=== PATIENT | male | born 1965 | race Caucasian/White ===

== ENCOUNTER 2017-05-15 00:24 | Emergency (ER) | payer MEDICAID ==
[~2017-05-15] VITALS: Ht 170.2 cm; Wt 76.5 kg
[~2017-05-15 00:24] MED LIST: NAPR-260 PO; dayquil
[2017-05-15 00:29] VITALS: Ht 170.2 cm; Wt 76.5 kg
[2017-05-15] MEDS ORDERED: SOD CHLORIDE 0.9% 1,000 ML IV STA (00:37)
[2017-05-15] MEDS ORDERED: ONDANSETRON 4 MG INJ IV STA (00:37)
[2017-05-15] MEDS ORDERED: morphine 4 MG/ML VIAL IV STA (00:37)
[2017-05-15 00:56] VITALS: TEMP 98.7
[2017-05-15 01:05] LABS: ADD SCAN DIFF NO
[2017-05-15 01:06] LABS: BASOPHILS % 0.3 % (0.0-2.0); EOSINOPHILS % 0.3 % (0.0-7.0); HEMATOCRIT 44.4 % (42.0-52.0); HEMOGLOBIN 15.2 g/dl (14.0-18.0); LYMPHOCYTES # 1.8 10^3/ul (0.8-2.9); MEAN CORPUSCULAR HEMOGLOBIN 31.1 pg (29.0-33.0); MEAN CORPUSCULAR HGB CONC 34.2 g/dl (32.0-37.0); MEAN CORPUSCULAR VOLUME 90.8 fl (82.0-101.0); MEAN PLATELET VOLUME 10.3 fl (7.4-10.4); MONOCYTE # 0.8 10^3/ul (0.3-0.9); MONOCYTES % 9.5 % (0.0-11.0); NEUTROPHIL # 5.9 10^3/ul (1.6-7.5); NEUTROPHILS % 68.7 % (39.0-77.0); PLATELET COUNT 263 10^3/UL (140-415); RED BLOOD COUNT 4.89 10^6/ul (4.70-6.10); RED CELL DISTRIBUTION WIDTH 13.7 % (11.5-14.5); WHITE BLOOD COUNT 8.6 10^3/ul (4.8-10.8)
[2017-05-15 01:21] LABS: ADD UMIC YES; UR ASCORBIC ACID NEGATIVE (NEGATIVE); UR BILIRUBIN (Dip) NEGATIVE (NEGATIVE); UR BLOOD (Dip) 1+ mg/dL (NEGATIVE); UR CLARITY CLEAR (CLEAR); UR COLOR YELLOW (YELLOW); UR GLUCOSE (Dip) NEGATIVE (NEGATIVE); UR KETONES (Dip) NEGATIVE (NEGATIVE); UR LEUKOCYTE ESTERASE (Dip) NEGATIVE Leu/ul (NEGATIVE); UR NITRITE (Dip) NEGATIVE (NEGATIVE); UR RBC 2 /HPF (0-5); UR TOTAL PROTEIN (Dip) NEGATIVE (NEGATIVE); UR UROBILINOGEN (Dip) NEGATIVE (NEGATIVE)
[2017-05-15 01:24] LABS: ALBUMIN 4.5 g/dl (3.3-4.9); ALBUMIN/GLOBULIN RATIO 1.36; BILIRUBIN,INDIRECT 0.3 mg/dl (0-1.1); BILIRUBIN,TOTAL 0.3 mg/dl (0.2-1.3); CALCIUM 9.2 mg/dl (8.4-10.2); CREATININE 0.66 mg/dl (0.61-1.24); TOTAL PROTEIN 7.8 g/dl (6.1-8.1)
--- NOTE | 2017-05-15 02:29 | RADRPT ---
PROCEDURE: CT abdomen and pelvis without intravenous contrast. CLINICAL INDICATION: Pain. TECHNIQUE: CT of the abdomen/pelvis was performed utilizing axial images with reconstructions in s agittal and coronal planes. The administered radiation dose is CTDI 11.8 mGy, DLP 703 mGy-cm. COMPARISON: No pertinent prior examinations were submitted for comparison. FINDINGS: Visualized Chest: The visualized lung bases are clear. Abdomen: The liver, spleen, pancreas, and adrenal glands are unremarkable. Prior cholecystectomy is noted. The kidneys are without hydronephrosis. No definite urinary calculi are seen. There is no evidence of bowel obstruction. The appendix is normal. No intra-abdominal free air is seen. There is some thickening of the distal the terminal ileum with some mild surrounding mesenter ic inflammatory changes. There is no evidence of intra-abdominal adenopathy or free fluid. Pelvis: There is no evidence of pelvic adenopathy or free fluid. The prostate and bladder are unremarkable. Osseous structures: Unremarkable. IMPRESSION: Thickening of the distal terminal ileum compatible with enteritis. RPTAT: HIKT .Branden Roca MD, MD Date Time Electronically viewed and signed by .Branden Roca MD, on 05/15/2017 02:28 .T/
--- NOTE | 2017-05-15 04:53 | ERD ---
ER Documentation Chief Complaint Date/Time DATE: 05/15/17 TIME: 04:52 Chief Complaint ap , n/v/d for a week, pt feels dizzy and weak HPI 51-year-old male comes in with abdominal pain. He complains of downsloping diarrhea for 1 week. Episodes of watery stool per day with no bleeding. 2 episodes of vomiting per day nonbilious and nonbloody. No fevers no chills. No sick contacts. ROS All systems reviewed and are negative except as per history of present illness. 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 Reported Medications [dayquil] No Conflict Check 12/25/12 [None] No Conflict Check 08/08/12 Allergies Allergies: Coded Allergies: No Known Drug Allergies (Verified Allergy, Mild, 07/23/16) PMhx/Soc History of Surgery: Yes (Cholecystectomy) Anesthesia Reaction: No Hx Neurological Disorder: No Hx Respiratory Disorders: No Hx Cardiac Disorders: No Hx Psychiatric Problems: No Hx Miscellaneous Medical Probl: No Hx Alcohol Use: No Hx Substance Use: No Hx Tobacco Use: No Smoking Status: Unknown if ever smoked Physical Exam Vitals Vital Signs Date Time Temp Pulse Resp B/P Pulse Ox O2 Delivery O2 Flow Rate FiO2 05/15/17 02:03 68 18 113/68 98 Room Air 05/15/17 00:56 98.7 63 17 116/62 97 Room Air 05/15/17 00:29 98.7 74 18 125/61 98 Physical Exam Const: [] Head: Atraumatic Eyes: Normal Conjunctiva ENT: Normal External Ears, Nose and Mouth. Neck: Full range of motion..~ No meningismus. Resp: Clear to auscultation bilaterally Cardio: Regular rate and rhythm, no murmurs Abd: Soft, non tender, non distended. Normal bowel sounds Skin: No petechiae or rashes Back: No midline or flank tenderness Ext: No cyanosis, or edema Neur: Awake and alert Psych: Normal Mood and Affect Result Diagram: 05/15/17 0044 05/15/17 0044 Results 24 hrs Laboratory Tests Test 05/15/17 00:44 7/17/17 00:49 White Blood Count 8.610^3/ul Red Blood Count 4.8910^6/ul Hemoglobin 15.2g/dl Hematocrit 44.4% Mean Corpuscular Volume 90.8fl Mean Corpuscular Hemoglobin 31.1pg Mean Corpuscular Hemoglobin Concent 34.2g/dl Red Cell Distribution Width 13.7% Platelet Count 57240^3/UL Mean Platelet Volume 10.3fl Neutrophils % 68.7% Lymphocytes % 21.0% Monocytes % 9.5% Eosinophils % 0.3% Basophils % 0.3% Nucleated Red Blood Cells % 0.0/100WBC Neutrophils # 5.910^3/ul Lymphocytes # 1.810^3/ul Monocytes # 0.810^3/ul Eosinophils # 0.010^3/ul Basophils # 0.010^3/ul Nucleated Red Blood Cells # 0.010^3/ul Sodium Level 141mmol/L Potassium Level 4.0mmol/L Chloride Level 101mmol/L Carbon Dioxide Level 25mmol/L Anion Gap 19 Blood Urea Nitrogen 18mg/dl Creatinine 0.66mg/dl Glucose Level 102mg/dl Calcium Level 9.2mg/dl Total Bilirubin 0.3mg/dl Direct Bilirubin 0.00mg/dl Indirect Bilirubin 0.3mg/dl Aspartate Amino Transf (AST/SGOT) 49IU/L Alanine Aminotransferase (ALT/SGPT) 47IU/L Alkaline Phosphatase 110IU/L Total Protein 7.8g/dl Albumin 4.5g/dl Globulin 3.30g/dl Albumin/Globulin Ratio 1.36 Lipase 87U/L Urine Color YELLOW Urine Clarity CLEAR Urine pH 5.0 Urine Specific [place] 1.030 Urine Ketones NEGATIVEmg/dL Urine Nitrite NEGATIVEmg/dL Urine Bilirubin NEGATIVEmg/dL Urine Urobilinogen NEGATIVEmg/dL Urine Leukocyte Esterase NEGATIVELeu/ul Urine Microscopic RBC 2/HPF Urine Microscopic WBC 1/HPF Urine Hemoglobin 1+mg/dL Urine Glucose NEGATIVEmg/dL Urine Total Protein NEGATIVEmg/dl Current Medications Medications (Trade) Dose Ordered Sig/Gerry Route PRN Reason Start Time Stop Time Status Last Admin Dose Admin Sodium Chloride (NS) 1,000 ml @ 1,000 mls/hr Q1H STAT IV 05/15/17 00:37 05/15/17 01:36 DC 05/15/17 00:46 Morphine Sulfate (morphine) 4 mg ONCE STAT IV 05/15/17 00:37 05/15/17 00:39 DC 05/15/17 00:46 Ondansetron HCl (Zofran Inj) 4 mg ONCE STAT IV 05/15/17 00:37 05/15/17 00:39 DC 05/15/17 00:46 Procedures/MDM Medical decision-m[age]-year-old male with ileitis. At this point clinically stable for outpatient management. Patient will be discharged home. Departure Diagnosis: Primary Impression: Abdominal pain Abdominal location: generalized Qualified Code: R10.84 - Generalized abdominal pain Condition: Stable NATALIA BROOKS May 15, 2017 04:53
[2017-05-15] MEDS ORDERED: METR500T PO (04:54)
[2017-05-15] MEDS ORDERED: ONDA4TAB14 PO (04:54)
[2017-05-15] MEDS ORDERED: CIPR500T4 PO (04:54)
[2017-05-15 05:06] VITALS: BP 116/58; PULSE 66; RESP 18
== END 2017-05-15 05:05 | disposition home or self-care (01) ==
LOC: E/R 00:24
DX: R10.84 Generalized abdominal pain (principal); R11.2 Nausea with vomiting, unspecified
CPT/HCPCS: 74176; 80053; 81001; 83690; 85025; J2270; J2405; J7030; 36415; 96374; 96375